=== PATIENT | male | born 1985 | race Two or more races ===

== ENCOUNTER 2016-07-24 12:34 | Emergency (ER) | payer MEDICAID ==
[2016-07-24] MEDS ORDERED: NS 1,000 ML IV ONE (13:32)
[2016-07-24] MEDS ORDERED: KETOROLAC 30 MG/1 ML SDV IVP ONE (13:32)
--- NOTE | 2016-07-24 13:36 | EDPHY ---
H & P Time Seen by Provider: 07/24/16 12:57 HPI/ROS: CHIEF COMPLAINT: Right upper quadrant pain HISTORY OF PRESENT ILLNESS: Patient is a 30-year-old male who presents emergency department with right upper quadrant pain. The patient states he has been seen at [facility] for this. He was diagnosed with "inflamed liver. " He had an ultrasound that was not told the results. He continues to have right upper quadrant pain. It is moderate and does not radiate. No dysuria frequency. He states that he normally drinks a pt of whiskey a day but has been cutting back due to his liver tests findings. He does not feel as though he is withdrawing. He has had no seizures. He is not tremulousness. He REVIEW OF SYSTEMS: My complete review of systems is negative except as mentioned in the HPI. Past Medical/Surgical History: Includes alcohol abuse any Past surgical history: Includes appendectomy Social history: The patient reports remotely using meth amphetamine. He drinks alcohol regularly. Denies heroin use Smoking Status: Current every day smoker Physical Exam: Vitals noted GENERAL: Well-appearing, in no acute distress, alert. HEENT: Eyes normal to inspection, normal pharynx, no signs of dehydration. NECK: No thyromegaly, no lymphadenopathy, supple. RESPIRATORY: Clear to auscultation bilaterally, no rales, rhonchi or wheezing. CVS: Regular rate and rhythm, no rubs, murmurs, or gallops. ABDOMEN: Soft, minimal right upper quadrant tenderness palpation with no rebound or guarding, nondistended, no organomegaly. BACK: Normal to inspection, no CVA tenderness. SKIN: Normal color, no rash, warm, dry. No pallor. EXTREMITIES: No pedal edema, no calf tenderness, no Homans sign or cords, no joint swelling. NEURO/PSYCH: Alert and oriented, normal mood and affect. Constitutional: Initial Vital Signs Temperature (C) 36.8 C 07/24/16 12:45 Heart Rate 71 07/24/16 12:45 Respiratory Rate 18 07/24/16 12:45 Blood Pressure 136/90 H 07/24/16 12:45 O2 Sat (%) 97 07/24/16 12:45 O2 Delivery Mode Room Air Allergies/Adverse Reactions: promethazine Allergy (Verified 07/24/16 12:44) Home Medications: Medication Instructions Recorded NK [No Known Home Meds] 07/24/16 Medical Decision Making ED Course/Re-evaluation: In the emergency department I discussed possible etiologies with the patient. IV was placed. Laboratory studies and ultrasound were ordered. Patient was given Toradol 30 mg IV for pain control. Laboratory studies: The patient has normal LFTs. His white count is normal. Chemistry panel unremarkable. Lipase is normal. Ultrasound: Please refer the dictated report. The patient has normal right upper quadrant ultrasound. I discussed this result with the patient. I answered all his questions. Chest x-ray: No acute disease. Please refer the dictated report. I discussed all results with the patient. I answered his questions. He is given follow-up with Gastroenterology. He is given warnings prior to leaving. He will return with worsening symptoms. Differential Diagnosis: My differential includes but is not limited to cholecystitis, cholangitis, pancreatitis, hepatitis - Data Points Laboratory Results: Laboratory Results 07/24/16 13:25 07/24/16 13:25 07/24/16 07/24/16 07/24/16 13:25 13:25 13:25 WBC 3.82 10^3/uL 10^3/uL (3.80-9.50) RBC 5.22 10^6/uL 10^6/uL (4.40-6.38) Hgb 14.7 g/dL g/dL (13.7-17.5) Hct 44.6 % % (40.0-51.0) MCV 85.4 fL fL (81.5-99.8) MCH 28.2 pg pg (27.9-34.1) MCHC 33.0 g/dL g/dL (32.4-36.7) RDW 12.9 % % (11.5-15.2) Plt Count 276 10^3/uL 10^3/uL (150-400) MPV 10.5 fL fL (8.7-11.7) Neut % (Auto) 55.7 % % (39.3-74.2) Lymph % (Auto) 34.6 % % (15.0-45.0) Nye % (Auto) 8.1 % % (4.5-13.0) Eos % (Auto) 0.5 % L % (0.6-7.6) Baso % (Auto) 0.8 % % (0.3-1.7) Nucleat RBC Rel Count 0.0 % % (0.0-0.2) Absolute Neuts (auto) 2.13 10^3/uL 10^3/uL (1.70-6.50) Absolute Lymphs (auto) 1.32 10^3/uL 10^3/uL (1.00-3.00) Absolute Monos (auto) 0.31 10^3/uL 10^3/uL (0.30-0.80) Absolute Eos (auto) 0.02 10^3/uL L 10^3/uL (0.03-0.40) Absolute Basos (auto) 0.03 10^3/uL 10^3/uL (0.02-0.10) Absolute Nucleated RBC 0.00 10^3/uL 10^3/uL (0-0.01) Immature Gran % 0.3 % % (0.0-1.1) Immature Gran # 0.01 10^3/uL 10^3/uL (0.00-0.10) PT 14.0 SEC SEC (12.0-15.0) INR 1.09 (0.83-1.16) APTT 30.3 SEC SEC (23.0-38.0) Sodium 141 mEq/L mEq/L (134-144) Potassium 4.5 mEq/L mEq/L (3.5-5.2) Chloride 105 mEq/L mEq/L (97-110) Carbon Dioxide 22 mEq/l mEq/l (22-31) Anion Gap 14 mEq/L mEq/L (8-16) BUN 12 mg/dL mg/dL (7-23) Creatinine 1.1 mg/dL mg/dL (0.7-1.3) Estimated GFR > 60 Glucose 91 mg/dL mg/dL (70-100) Calcium 10.4 mg/dL mg/dL (8.5-10.4) Total Bilirubin 0.7 mg/dL mg/dL (0.1-1.4) Conjugated Bilirubin 0.4 mg/dL mg/dL (0.0-0.5) Unconjugated Bilirubin 0.3 mg/dL mg/dL (0.0-1.1) AST 30 IU/L IU/L (17-59) ALT 60 IU/L IU/L (21-72) Alkaline Phosphatase 101 IU/L IU/L (38-126) Total Protein 8.2 g/dL g/dL (6.3-8.2) Albumin 4.9 g/dL g/dL (3.5-5.0) Lipase 100.0 IU/L IU/L (23-300) Medications Given: Discontinued Medications Sodium Chloride (Ns) 1,000 mls @ 0 mls/hr IV ONCE ONE PRN Reason: Wide Open Stop: 07/24/16 13:33 Last Admin: 07/24/16 13:38 Dose: 1,000 mls Ketorolac Tromethamine (Toradol) 30 mg IVP EDNOW ONE Stop: 07/24/16 13:33 Last Admin: 07/24/16 13:38 Dose: 30 mg Departure - Departure Disposition: Home, Routine, Self-Care Clinical Impression: Right upper quadrant pain Condition: Good Instructions: Abdominal Pain (ED) Additional Instructions: Return with increasing abdominal pain, vomiting, fever or any other concerns. Your laboratory studies (including liver function tests), chest xray, and ultrasound were normal. Referrals: NONE *PRIMARY CARE P,. [Primary Care Provider] - As per Instructions [facility],. [Clinic] - As per Instructions
[2016-07-24 13:49] LABS: % IMMATURE GRANULYOCYTES 0.3 % (0.0-1.1); ABSOLUTE IMMATURE GRANULOCYTES 0.01 10^3/uL (0.00-0.10); ADD DIFF? NO; ADD MORPH? NO; ADD SCAN? NO; ATYPICAL LYMPHOCYTE FLAG 0 (0-99); FRAGMENT RBC FLAG 0 (0-99); HEMATOCRIT 44.6 % (40.0-51.0); HEMOGLOBIN 14.7 g/dL (13.7-17.5); LEFT SHIFT FLG 0 (0-99); LIPEMIA HEMOLYSIS FLAG 80 (0-99); MEAN CELL HEMOGLOBIN 28.2 pg (27.9-34.1); MEAN CELL VOLUME 85.4 fL (81.5-99.8); MEAN PLATELET VOLUME 10.5 fL (8.7-11.7); PLATELET CLUMPS FLAG 0 (0-99); PLATELET COUNT 276 10^3/uL (150-400); RED BLOOD CELL COUNT 5.22 10^6/uL (4.40-6.38); RED CELL DISTRIBUTION WIDTH 12.9 % (11.5-15.2)
[2016-07-24 14:02] LABS: APTT 30.3 SEC (23.0-38.0)
[2016-07-24 14:17] LABS: INR 1.09 (0.83-1.16)
[2016-07-24 14:22] LABS: ALANINE AMINOTRANSFERASE 60 IU/L (21-72); ALBUMIN 4.9 g/dL (3.5-5.0); ALKALINE PHOSPHATASE 101 IU/L (38-126); ANION GAP 14 mEq/L (8-16); ASPARTATE AMINOTRANSFERASE 30 IU/L (17-59); BILIRUBIN,TOTAL 0.7 mg/dL (0.1-1.4); BILIRUBIN-CONJUGATED 0.4 mg/dL (0.0-0.5); BILIRUBIN-UNCONJUGATED 0.3 mg/dL (0.0-1.1); CALCIUM 10.4 mg/dL (8.5-10.4); CARBON DIOXIDE 22 mEq/l (22-31); CHLORIDE 105 mEq/L (97-110); CREATININE 1.1 mg/dL (0.7-1.3); GLOMERULAR FILTRATION RATE > 60; GLUCOSE 91 mg/dL (70-100); POTASSIUM 4.5 mEq/L (3.5-5.2); SODIUM 141 mEq/L (134-144); TOTAL PROTEIN 8.2 g/dL (6.3-8.2)
[2016-07-24 15:31] VITALS: BP 112/79; PULSE 70; RESP 16; TEMP 98.4; O2SAT 96
== END 2016-07-24 15:30 | disposition home or self-care (01) ==
DX: R10.11 Right upper quadrant pain (principal); F17.200 Nicotine dependence, unspecified, uncomplicated; Z90.49 Acquired absence of other specified parts of digestive tract
CPT/HCPCS: 96374; J1885